=== PATIENT | female | born 1955 | race Caucasian/White ===

== ENCOUNTER 2021-04-05 09:23 | Day surgery (SDC) | payer OTHER ==
[~2021-04-05 09:23] MED LIST: Lactated Ringers 1,000 ML IV SCH; Sodium Chloride 0.9% 10 ML SDV IV PRN; Sodium Chloride 0.9% 10 ML Syringe FLUSH PRN; Sodium Chloride 0.9% 2.5 ML Syringe FLUSH PRN; ceFAZolin 2 GM in Premix Bag 1 BAG IV ONE
[2021-04-05] MEDS ORDERED: Octyl 2-Cyanoacrylate 1 Tube ONE (09:54)
[2021-04-05] MEDS ORDERED: Bupivacaine 0.5% 30 ML SDV ONE ×2 (09:54→12:26)
[2021-04-05] MEDS ORDERED: fentaNYL 250 MCG/5 ML SDV ONE (10:09)
[2021-04-05] MEDS ORDERED: Propofol 200 MG/20 ML SDV ONE (10:09)
[2021-04-05] MEDS ORDERED: Midazolam 1 MG/ML 2 ML SDV ONE (10:09)
--- NOTE | 2021-04-05 10:09 | PCM.PREANE ---
Preanesthetic Assessment - Anesthesia/Transfusion/Family Hx Anesthesia History: Prior Anesthesia Without Reaction Other Type of Anesthesia Reaction Comment: "was given to much fentanyl during one of my dental surgeries" Family History of Anesthesia Reaction: No Transfusion History: No Prior Transfusion(s) Intubation History: Unknown - Review of Systems General: No Symptoms Pulmonary: No Symptoms Cardiovascular: No Symptoms Gastrointestinal: No Symptoms Neurological: No Symptoms Other: Reports: None - Physical Assessment NPO Status Date: 04/05/21 NPO Status Time: 00:01 Height: 5 ft 6 in Weight: 182 lb ASA Class: 2 Mental Status: Alert & Oriented x3 Airway Class: Mallampati = 2 Dentition: Reports: Normal Dentition ROM/Head Extension: Full Lungs: Clear to Auscultation, Normal Respiratory Effort Cardiovascular: Regular Rate, Regular Rhythm - Allergies Allergies/Adverse Reactions: Allergies Allergy/AdvReac Type Severity Reaction Status Date / Time No Known Allergies Allergy Verified 03/30/21 11:38 - Anesthesia Plan Pre-Op Medication Ordered: None - Acknowledgements Anesthesia Type Planned: General Anesthesia Pt an Appropriate Candidate for the Planned Anesthesia: Yes Alternatives and Risks of Anesthesia Discussed w Pt/Guardian: Yes Pt/Guardian Understands and Agrees with Anesthesia Plan: Yes Additional Comments: npo after mn anxiety depression zach tob quit 1988 etoh rare no cv problems par no questions PreAnesthesia Questionnaire HEENT History: Reports: Cataract Other HEENT History: wears glasses, has dental implant Cardiovascular History: Reports: None Respiratory History: Reports: None Gastrointestinal History: Reports: GERD Genitourinary History: Reports: Renal Calculus Other Genitourinary History: has passed kidney stones but feels that she has some currently 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, Musculoskeletal History: Reports: None Neurological History: Reports: None Psychiatric History: Reports: Anxiety Endocrine/Metabolic History: Reports: Hypothyroidism Hematologic History: Reports: None Immunologic History: Reports: None Oncologic (Cancer) History: Reports: None Dermatologic History: Reports: None - Past Surgical History Head Surgeries/Procedures: Reports: None HEENT Surgical History: Reports: Cataract Surgery, Eye Surgery, Oral Surgery, Visual Other HEENT Surgeries/Procedures: had Lumellar Macular Hole, had oral bone graft for dental implant Cardiovascular Surgical History: Reports: None Respiratory Surgical History: Reports: None GI Surgical History: Reports: Colonoscopy Female Surgical History: Reports: Cystectomy, Other (See Below) Other Female Surgeries/Procedures: Laparoscopy for removal of Ovarian Cyst, Embolization of Uterine Fibroid Endocrine Surgical History: Reports: None Neurological Surgical History: Reports: None Musculoskeletal Surgical History: Reports: None Oncologic Surgical History: Reports: None Dermatological Surgical History: Reports: None - SUBSTANCE USE Tobacco Use Status *Q: Former Tobacco User Tobacco Use Within Last Twelve Months: No - HOME MEDS Home Medications: Home Meds Famotidine [Pepcid] 20 mg PO DAILY 10/14/18 [History] Fish Oil/[place]-3 Fatty Acids [Fish Oil 1,000 MG] 1 gm PO DAILY 10/14/18 [History] Levothyroxine Sodium [Synthroid] 100 mcg PO DAILY 10/14/18 [History] calcium polycarbophiL [Fiber Tabs] 625 mg PO DAILY 10/14/18 [History] Ergocalciferol (Vitamin D2) [Vitamin D2] 50,000 units PO ASDIRECTED 03/30/21 [History] - CURRENT (IN HOUSE) MEDS Current Meds: Current Medications Lactated Ringer's (Ringers, Lactated) 1,000 mls @ 125 mls/hr IV ASDIRECTED MALOU Sodium Chloride (Sodium Chloride 0.9% 2.5 Ml Syringe) 2.5 ml FLUSH ASDIRECTED PRN PRN Reason: Keep Vein Open Sodium Chloride (Sodium Chloride 0.9% 10 Ml Sdv) 10 ml IV ASDIRECTED PRN PRN Reason: IV Use Sodium Chloride (Sodium Chloride 0.9% 10 Ml Syringe) 10 ml FLUSH ASDIRECTED PRN PRN Reason: Keep Vein Open Discontinued Medications Bupivacaine HCl (Bupivacaine 0.5% 30 Ml Sdv) Confirm Administered Dose 30 ml .ROUTE .STK-MED ONE Stop: 04/05/21 09:55 Cefazolin Sodium/Dextrose 2 gm (/ Premix) 50 mls @ 100 mls/hr IV ONETIME ONE Stop: 04/02/21 10:31 Octyl Cyanoacrylate (Octyl 2-Cyanoacrylate 1 Tube) Confirm Administered Dose 1 applic .ROUTE .STK-MED ONE Stop: 04/05/21 09:55
[2021-04-05] MEDS ORDERED: Ondansetron 4 MG/2 ML SDV ONE (10:14)
[2021-04-05] MEDS ORDERED: Dexamethasone 4 MG/ML 5 ML MDV ONE (10:14)
[2021-04-05] MEDS ORDERED: Rocuronium Bromide 50 MG/5 ML Syringe ONE (10:14)
[2021-04-05] MEDS ORDERED: Glycopyrrolate 0.2 MG/ML SDV ONE (11:42)
--- NOTE | 2021-04-05 13:34 | PCM.OPNOTE ---
- General Post-Op/Procedure Note Date of Surgery/Procedure: 04/05/21 Operative Procedure(s): Laparoscopic cholecystectomy, intra-abdominal lysis of adhesions Findings: Severely inflamed gallbladder containing large gallstone impacted at the neck of the gallbladder. Large amount of omental adhesions to the abdominal wall, liver and duodenum. Pre Op Diagnosis: Symptomatic cholelithiasis Post-Op Diagnosis: Intra-abdominal adhesions, acute on chronic cholecystitis secondary to cholelithiasis Anesthesia Technique: MAC Primary Surgeon: Marybeth Tran Fluid Replacement, Intraop: 1,700 Output, Urine Amount: 100 EBL in mLs: 150 Condition: Good
--- NOTE | 2021-04-05 14:39 | PCM.POSTAN ---
POST ANESTHESIA ASSESSMENT - MENTAL STATUS Mental Status: Alert (no anesthetic problems), Oriented - VITAL SIGNS Vital Signs: Last Vital Signs Temp 98.2 F 04/05/21 13:37 Pulse 68 04/05/21 14:33 Resp 13 04/05/21 14:33 BP 123/71 04/05/21 14:33 Pulse Ox 94 L 04/05/21 14:33 - RESPIRATORY Respiratory Status: Respiratory Rate WNL, Airway Patent, O2 Saturation Stable - CARDIOVASCULAR CV Status: Pulse Rate WNL, Blood Pressure Stable - GASTROINTESTINAL GI Status: No Symptoms - POST OP HYDRATION Hydration Status: Adequate & Stable
[2021-04-05] MEDS ORDERED: Acetaminophen 1,000 MG in Premix Bag 1 BAG IV ONE (14:45)
--- NOTE | 2021-04-05 16:49 | PCM48HPAN ---
Post Anesthesia Note - EVALUATION WITHIN 48HRS OF ANESTHETIC Vital Signs in Normal Range: Yes Patient Participated in Evaluation: Yes Respiratory Function Stable: Yes Airway Patent: Yes Cardiovascular Function Stable: Yes Hydration Status Stable: Yes Pain Control Satisfactory: Yes Nausea and Vomiting Control Satisfactory: Yes Mental Status Recovered: Yes Vital Signs: Last Vital Signs Temp 35.8 C L 04/05/21 14:36 Pulse 62 04/05/21 16:06 Resp 15 04/05/21 16:06 BP 115/68 04/05/21 16:06 Pulse Ox 97 04/05/21 16:06 - COMMENTS/OBSERVATIONS Free Text/Narrative:: Patient states she "is pretty comfortable and enjoying the service." Denies any complaints
--- NOTE | 2021-04-06 15:47 | OR ---
SURGEON: MARYBETH OLEA MD DATE OF PROCEDURE: 04/05/2021 PREOPERATIVE DIAGNOSIS: Symptomatic cholelithiasis. POSTOPERATIVE DIAGNOSES: 1. Acute on chronic cholecystitis. 2. Intraabdominal adhesions. PROCEDURE PERFORMED: 1. Laparoscopic lysis of abdominal adhesions. 2. Laparoscopic cholecystectomy. PRIMARY SURGEON: Marybeth Olea MD SECONDARY SURGEON: Mejia Polo M.D. ANESTHESIA: General endotracheal anesthesia. FLUIDS: 1700 mL of crystalloid. ESTIMATED BLOOD LOSS: 150 mL. URINE OUTPUT: 100 mL. FINDINGS: A large amount of intraabdominal adhesions in the right upper quadrant. Severely inflamed gallbladder with a large stone impacted at the neck of the gallbladder. COMPLICATIONS: None. INDICATIONS: The patient is a 65-year-old female who presented to my clinic with symptomatic cholelithiasis. Her preoperative ultrasound showed a 5 mm stone in the neck of the gallbladder. There was no evidence of acute cholecystitis or choledocholithiasis. The patient and I discussed the need for cholecystectomy. I would attempt this laparoscopically but go open should I be unable to perform it safely. I explained the expected perioperative course as well as the risks including bleeding, infection, or damage to surrounding structures. The patient verbalized understanding and wishes to proceed. PROCEDURE IN DETAIL: The patient was brought into the OR and placed on the OR table in supine position. A time-out was completed verifying the patient's name, age, date of , allergies, and procedure to be performed. General endotracheal anesthesia was induced. The left arm was tucked to the patient's side, and a Alfaro catheter placed. The abdomen was prepped and draped in usual standard fashion. I anesthetized the infraumbilical fold with 0.5% Marcaine plain. An 11 blade was used to make an incision along this fold. Cautery was used to dissect down to the level of subcutaneous fat. I bluntly dissected down to the fascia and elevated it with Kochers. It was incised sharply with curved Balderas scissors. I then grasped the peritoneum with hemostats and incised this sharply. Entry into the abdomen was palpated digitally. A 12 mm Thomas trocar was inserted into the abdomen, and it was insufflated. A 5 mm, 30-degree scope was inserted. I inspected the area underneath my initial trocar placement. No damage to surrounding structures was noted. The patient was placed into reverse Trendelenburg position and airplaned slightly to the left. The patient was noted to have a large amount of intraabdominal adhesions in the right upper quadrant. I placed a 5 mm trocar under direct visualization in the epigastric area. In order to place my other trocars safely, I began to take down the intraabdominal adhesions with a combination of sharp dissection with laparoscopic Metzenbaum scissors and hook cautery. Once I had cleared away all the omental adhesions from the abdominal wall, I placed a 5 mm trocar in the right flank and one 2 fingerbreadths below the right subcostal margin in the midclavicular line. I was able to see the dome of the gallbladder. It was grasped and elevated. There were large amount of adhesions around the gallbladder as well. Using a combination of blunt dissection and hook cautery, I took down the omental adhesions to the gallbladder itself. Around the infundibulum, the duodenum was adhered to the gallbladder as well as the surrounding liver bed. Using gentle blunt dissection, I was able to peel away the duodenum from the infundibulum and separate the adhesions around the area so that I would be able to safely work on the gallbladder without causing damage to the surrounding liver capsule. The patient was noted to have a large stone impacted in the neck of the gallbladder. This made it very difficult to do my proximal dissection. The patient was given indocyanine in order to facilitate identification of my biliary tree. I attempted to laparoscopically dissect out my cystic duct and artery, but due to the large amount of inflammation proximally, I was unable to do so safely. I turned my attention instead to the top of the gallbladder. I took the gallbladder down off the gallbladder fossa in a dome down fashion using hook cautery. Given the difficulty of my dissection, I asked Dr. Mejia Polo to come consult on the case. He entered the case and was able to dissect free the cystic duct and artery. Throughout the dissection, we used the indocyanine green function on the scope to guide our progress. There were some small branching vessels in the gallbladder fossa, which were doubly clipped and ligated. Once our critical view was achieved, a photograph was taken. We doubly clipped and ligated both the cystic duct and artery. The gallbladder was placed in an Endo Catch bag. The upper abdomen was irrigated with normal saline, which was then suctioned out. Surgicel was then placed in the gallbladder fossa. There was no evidence of bile leakage. Once hemostasis was achieved, the 5 mm trocars were removed under direct visualization and the 12 mm Thomas trocar was removed as well. The abdomen was allowed to desufflate. The fascia at the umbilical port site was closed with interrupted 0 Vicryl sutures. The subcutaneous fat layer was closed with interrupted 3-0 Vicryl sutures. The skin was closed with a running 4-0 Monocryl stitch. The 5 mm trocar sites were closed with interrupted 4-0 Monocryl sutures. Dermabond and sterile dressings were applied. The patient tolerated the procedure well and was transferred to the PACU in stable condition. All counts were complete and correct at the end of the case. SHERI CARRANZA /[id number]
== END 2021-04-05 16:45 | disposition home or self-care (01) ==
LOC: MW.SDS 09:23
PROVIDERS: ATTEND Surgery
DX: K80.12 Calculus of gallbladder with acute and chronic cholecystitis without obstruction (principal); K66.0 Peritoneal adhesions (postprocedural) (postinfection); K21.9 Gastro-esophageal reflux disease without esophagitis; E03.9 Hypothyroidism, unspecified; Z79.890 Hormone replacement therapy; Z79.899 Other long term (current) drug therapy; Z98.890 Other specified postprocedural states; Z87.891 Personal history of nicotine dependence
CPT/HCPCS: 47562; A9270; J0131; J0690; J1100; J2250; J2405; J2704; J3010; J3490; J7120; 00790; 88304

== ENCOUNTER 2021-11-15 11:01 | Day surgery (SDC) | payer OTHER ==
--- NOTE | 2021-11-15 10:49 | PCM.PREANE ---
Preanesthetic Assessment - Anesthesia/Transfusion/Family Hx Anesthesia History: Prior Anesthesia Without Reaction Other Type of Anesthesia Reaction Comment: "was given to much fentanyl during one of my dental surgeries" Transfusion History: No Prior Transfusion(s) Intubation History: Unknown - Review of Systems General: No Symptoms Pulmonary: No Symptoms Cardiovascular: No Symptoms Gastrointestinal: No Symptoms Neurological: No Symptoms Other: Reports: None - Physical Assessment NPO Status Date: 11/15/21 NPO Status Time: 00:00 Height: 5 ft 6 in Weight: 180 lb ASA Class: 2 Mental Status: Alert & Oriented x3 Airway Class: Mallampati = 2 Dentition: Reports: Normal Dentition ROM/Head Extension: Full Lungs: Clear to Auscultation, Normal Respiratory Effort Cardiovascular: Regular Rate, Regular Rhythm - Allergies Allergies/Adverse Reactions: Allergies Allergy/AdvReac Type Severity Reaction Status Date / Time No Known Allergies Allergy Verified 11/09/21 09:43 - Acknowledgements Anesthesia Type Planned: General Anesthesia Pt an Appropriate Candidate for the Planned Anesthesia: Yes Alternatives and Risks of Anesthesia Discussed w Pt/Guardian: Yes Pt/Guardian Understands and Agrees with Anesthesia Plan: Yes PreAnesthesia Questionnaire HEENT History: Reports: Cataract Other HEENT History: wears glasses Cardiovascular History: Reports: None Respiratory History: Reports: None Gastrointestinal History: Reports: Colon Polyp, Diverticulosis Genitourinary History: Reports: Renal Calculus Other Genitourinary History: has passed kidney stones but feels that she has some currently 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 Musculoskeletal History: Reports: None Neurological History: Reports: None Psychiatric History: Reports: Anxiety Endocrine/Metabolic History: Reports: Hypothyroidism Hematologic History: Reports: None Immunologic History: Reports: None Oncologic (Cancer) History: Reports: None Dermatologic History: Reports: None - Past Surgical History Head Surgeries/Procedures: Reports: None HEENT Surgical History: Reports: Cataract Surgery, Eye Surgery Other HEENT Surgeries/Procedures: unsure of procedure for eye surgery Cardiovascular Surgical History: Reports: None GI Surgical History: Reports: Cholecystectomy, Colonoscopy Female Surgical History: Reports: Lithotripsy/ESWL, Other (See Below) Other Female Surgeries/Procedures: removal of uterine polyp - SUBSTANCE USE Tobacco Use Status *Q: Former Tobacco User Recreational Drug Use History: No - HOME MEDS Home Medications: Home Meds Famotidine [Pepcid] 20 mg PO DAILY 10/14/18 [History] Fish Oil/[place]-3 Fatty Acids [Fish Oil 1,000 MG] 1 gm PO DAILY 10/14/18 [History] Levothyroxine Sodium [Synthroid] 100 mcg PO QAM 10/14/18 [History] calcium polycarbophiL [Fiber Tabs] 625 mg PO DAILY 10/14/18 [History] Ergocalciferol (Vitamin D2) [Vitamin D2] 50,000 units PO ASDIRECTED 03/30/21 [History] - CURRENT (IN HOUSE) MEDS Current Meds: Current Medications Lactated Ringer's (Ringers, Lactated) 1,000 mls @ 125 mls/hr IV ASDIRECTED MALOU Sodium Chloride (Sodium Chloride 0.9% 10 Ml Syringe) 10 ml FLUSH ASDIRECTED PRN PRN Reason: Keep Vein Open Sodium Chloride (Sodium Chloride 0.9% 2.5 Ml Syringe) 2.5 ml FLUSH ASDIRECTED PRN PRN Reason: Keep Vein Open Sodium Chloride (Sodium Chloride 0.9% 10 Ml Syringe) 10 ml FLUSH ASDIRECTED PRN PRN Reason: Keep Vein Open Sodium Chloride (Sodium Chloride 0.9% 2.5 Ml Syringe) 2.5 ml FLUSH ASDIRECTED PRN PRN Reason: Keep Vein Open Sodium Chloride (Sodium Chloride 0.9% 20 Ml Sdv) 10 ml IV ASDIRECTED PRN PRN Reason: IV Use Discontinued Medications Fentanyl (Fentanyl 100 Mcg/2 Ml Sdv) Confirm Administered Dose 100 mcg .ROUTE .STK-MED ONE Stop: 11/15/21 10:43 Midazolam HCl (Midazolam 1 Mg/Ml 2 Ml Sdv) Confirm Administered Dose 2 mg .ROUTE .STK-MED ONE Stop: 11/15/21 10:43 Propofol (Propofol 200 Mg/20 Ml Sdv) Confirm Administered Dose 200 mg .ROUTE .STK-MED ONE Stop: 11/15/21 10:43
[~2021-11-15 11:01] MED LIST changes: +Midazolam 1 MG/ML 2 ML SDV ONE; +Propofol 200 MG/20 ML SDV ONE; -Sodium Chloride 0.9% 10 ML SDV IV PRN; +Sodium Chloride 0.9% 20 ML SDV IV PRN; -ceFAZolin 2 GM in Premix Bag 1 BAG IV ONE; +fentaNYL 100 MCG/2 ML SDV ONE
--- NOTE | 2021-11-15 13:11 | PCM.POSTAN ---
POST ANESTHESIA ASSESSMENT - MENTAL STATUS Mental Status: Alert, Oriented - VITAL SIGNS Vital Signs: Last Vital Signs Temp 98.1 F 11/15/21 11:10 Pulse 66 11/15/21 11:10 Resp 15 11/15/21 11:10 BP 127/78 11/15/21 11:10 Pulse Ox 95 11/15/21 11:10 - RESPIRATORY Respiratory Status: Respiratory Rate WNL, Airway Patent, O2 Saturation Stable - CARDIOVASCULAR CV Status: Pulse Rate WNL, Blood Pressure Stable - GASTROINTESTINAL GI Status: No Symptoms - POST OP HYDRATION Hydration Status: Adequate & Stable
--- NOTE | 2021-11-15 13:11 | PCM48HPAN ---
Post Anesthesia Note - EVALUATION WITHIN 48HRS OF ANESTHETIC Vital Signs in Normal Range: Yes Patient Participated in Evaluation: Yes Respiratory Function Stable: Yes Airway Patent: Yes Cardiovascular Function Stable: Yes Hydration Status Stable: Yes Pain Control Satisfactory: Yes Nausea and Vomiting Control Satisfactory: Yes Mental Status Recovered: Yes Vital Signs: Last Vital Signs Temp 98.1 F 11/15/21 11:10 Pulse 66 11/15/21 11:10 Resp 15 11/15/21 11:10 BP 127/78 11/15/21 11:10 Pulse Ox 95 11/15/21 11:10
--- NOTE | 2021-11-15 13:14 | PCM.OPNOTE ---
- General Post-Op/Procedure Note Date of Surgery/Procedure: 11/15/21 Operative Procedure(s): Screening colonoscopy with polypectomy Findings: Transverse colon polyp x 2 Pre Op Diagnosis: History of colon polyps and diverticulosis Post-Op Diagnosis: Transverse colon polyp x 2 Anesthesia Technique: MAC Primary Surgeon: Marybeth Tran Condition: Good
--- NOTE | 2021-11-15 17:00 | OR ---
SURGEON: MARYBETH TRAN MD DATE OF PROCEDURE: 11/15/2021 PREOPERATIVE DIAGNOSES: Screening colonoscopy, history of diverticulosis and colon polyp. POSTOPERATIVE DIAGNOSIS: Transverse colon polyp x2. PROCEDURE PERFORMED: Screening colonoscopy with polypectomy. PRIMARY SURGEON: Marybeth Tran MD ANESTHESIA: MAC. INSTRUMENT USED: Olympus colonoscope. EXTENT OF EXAM: To the cecum. PREPARATION: Good. LIMITATIONS: None. INDICATIONS FOR EXAMINATION: Patient is a 65-year-old female who presents for a repeat screening colonoscopy due to a history of colon polyps. She has a known history of diverticulosis. The patient and I discussed the procedure, expected perioperative course, and the risks. She verbalized understanding and wishes to proceed. PROCEDURE IN DETAIL: Patient was brought in to the endoscopy suite and placed in a left lateral decubitus position. A time-out was completed verifying the patient's name, age, date of , allergies, and procedure to be performed. Monitored anesthesia care was induced and continuous oxygen was provided via face mask throughout the procedure. After adequate sedation was achieved, a digital rectal exam was performed. This exam was within normal limits. A well-lubricated colonoscope was inserted in the rectum and advanced under direct visualization to the level of the cecum. The cecum was identified by both visual and anatomic landmarks. A photograph was taken of the cecal cap as well as with the scope retroflexed within the cecum. The scope was then fully withdrawn while examining the color, texture, anatomy, and integrity of the mucosa from the cecum to the anal canal. The patient was found to have two small sessile polyps near the splenic flexure in the transverse colon. These were removed in piecemeal fashion using a cold biopsy forceps. The remainder of the colonoscopy was normal. The scope was brought into the rectum and retroflexed to allow visualization of the anal canal opening. This appeared normal and a photograph was taken. The scope was then straightened out and fully withdrawn. The cecum to anus time was 14 minutes. The patient tolerated the procedure well and was transferred to the PACU in stable condition. ENDOSCOPIC DIAGNOSIS: Transverse colon polyp x2. RECOMMENDATION: Follow up in clinic in two weeks. SHERI CARRANZA /[id number]
== END 2021-11-15 13:58 | disposition home or self-care (01) ==
LOC: MW.SDS 11:01
PROVIDERS: ATTEND Surgery
DX: Z12.11 Encounter for screening for malignant neoplasm of colon (principal); D12.3 Benign neoplasm of transverse colon; F41.9 Anxiety disorder, unspecified; E03.9 Hypothyroidism, unspecified; Z87.891 Personal history of nicotine dependence; Z80.0 Family history of malignant neoplasm of digestive organs; Z79.890 Hormone replacement therapy; Z79.899 Other long term (current) drug therapy
CPT/HCPCS: 45380; J2250; J2704; J3010; J7120; 00812